=== PATIENT | female | born 1990 | race African-American/Black ===

== ENCOUNTER 2021-04-21 00:47 | Emergency (ER) | payer BC, MEDICAID ==
[~2021-04-21] VITALS: Ht 167.6 cm; Wt 81.8 kg
[~2021-04-21 00:47] MED LIST: CARI350T PO
[2021-04-21 01:17] VITALS: BP 128/98
[2021-04-21] MEDS ORDERED: ONDA4TAB6 PO (01:51)
[2021-04-21] MEDS ORDERED: ondansetron 4mg rapidly disintigrating tab PO ONE (01:55)
== END 2021-04-21 02:28 | disposition home or self-care (01) ==
LOC: ER 00:47
DX: R05 Cough (principal); Z20.822 Contact with and (suspected) exposure to COVID-19; R53.83 Other fatigue; R50.9 Fever, unspecified; R19.7 Diarrhea, unspecified; R11.2 Nausea with vomiting, unspecified; I10 Essential (primary) hypertension; E11.9 Type 2 diabetes mellitus without complications; Z88.8 Allergy status to other drugs, medicaments and biological substances; Z79.899 Other long term (current) drug therapy
CPT/HCPCS: 36415; 99283; U0003; U0005